=== PATIENT | female | born 1935 | race Caucasian/White ===

== ENCOUNTER 2018-09-12 07:30 | Inpatient (IN) ==
[~2018-09-12 07:30] MED LIST: Clindamycin 900mg (Premix) 900 MG/50 ML BAG IV ONE; LIDOCAINE W/ SODIUM BICARB 0.5 ML SYR SUBD PRN; Nasal Sanitizer POPSWAB ampule 3 AMP (Nozin) PREOP DOSE ENOS SCH
[2018-09-12] MEDS ORDERED: Clindamycin 900mg (Premix) 900 MG/50 ML BAG IV ONE (07:35)
[2018-09-12] MEDS ORDERED: LIDOCAINE W/ SODIUM BICARB 0.5 ML SYR ONE ×2 (07:35→11:46)
[2018-09-12] MEDS ORDERED: Lactated Ringers 1,000 ML PRIMARY IV ONE ×2 (07:35→16:26)
[2018-09-12] MEDS ORDERED: Ketorolac Inj 30 MG, Morphine Inj (Ortho Cocktail) 5 MG, BUPivacaine Inj 0.25% PF 150 MG SPLASH ONE ×3 (08:19)
[2018-09-12] MEDS ORDERED: fentaNYL Inj 250 MCG/5 ML VIAL ONE (09:21)
[2018-09-12] MEDS ORDERED: MIDAZOLAM 5 MG/1 ML ONE (09:21)
[2018-09-12] MEDS ORDERED: BUPIVACAINE 0.5% W/ EPI - 10 ML VIAL ONE (09:22)
[2018-09-12] MEDS ORDERED: PROPOFOL 10 MG/1 ML (200 MG/20 ML) VIAL IV ONE (09:22)
[2018-09-12] MEDS ORDERED: LIDOCAINE MPF 2% - 5 ML (20 MG/1 ML) ONE (09:22)
[2018-09-12] MEDS ORDERED: ROCURONIUM 10 MG/1 ML - 5 ML VIAL IVP ONE (09:28)
[2018-09-12] MEDS ORDERED: FAMOTIDINE 20 MG/2 ML VIAL IVP ONE (09:28)
[2018-09-12] MEDS ORDERED: KETAMINE HCL 100 MG/2 ML SYRINGE IV ONE (09:28)
[2018-09-12 09:42] LABS: BILIRUBIN,URINE NEGATIVE (NEG); CLARITY,URINE Slightly Cloudy (CLEAR); COLOR,URINE YELLOW (Y); GLUCOSE, URINE (UA) NEGATIVE (NEG); OCCULT BLOOD,URINE NEGATIVE (NEG); PH,URINE 5.5 (5.0-8.5); PROTEIN,URINE TRACE mg/dl (NEG); UROBILINOGEN,URINE 0.2 EU/dL (0.2)
[2018-09-12 09:43] LABS: URINE SAMPLE TYPE CLEAN CATCH URINE
[2018-09-12] MEDS: Lactated Ringers 1,000 ML PRIMARY IV SCH ×3 (10:10→19:31)
[2018-09-12] MEDS ORDERED: LIDOCAINE 2%/ EPI 1:200,000 - 20 ML VIAL ONE (12:17)
[2018-09-12] MEDS ORDERED: Sodium Chloride 0.9% vial 50 ML ONE (12:30)
[2018-09-12] MEDS ORDERED: BACITRACIN 50,000 UNIT VIAL IRRIG ONE (12:30)
[2018-09-12] MEDS ORDERED: BUPivacaine Liposome/PF (Exparel) Inj 20ml vial INFIL ONE (12:31)
[2018-09-12] MEDS ORDERED: Acetaminophen 1000mg Inj 1,000 MG/100 ML VIAL IV ONE (12:53)
--- NOTE | 2018-09-12 17:06 | ORTHO.OP ---
Surgery Date: 09/12/18 Preoperative Diagnosis: left knee OA Postoperative Diagnosis: same Procedure: left TKA Surgeon: Lui Nelson MD [employer] Referee: Mile Langford PA-C Anesthesia Provider: Michelle Ferguson CRNA Anesthesia Type: General, Regional (adductor) Estimated Blood Loss (mL): 250 Fluids: 2200 mL LR Pathology: none Findings: See Operative Note Indications: See Operative Note Complications: None
--- NOTE | 2018-09-12 17:31 | DI ---
LEFT KNEE, 09/12/2018 4:55 PM: Clinical History: Status post total knee replacement. Osteoarthritis. Previous Exam: None at this facility. Views: AP and lateral. Patient is status post total left knee replacement. Prosthetic joint articulates normally. Extensive vascular calcifications are noted in the popliteal artery and the anterior tibial artery. Reading: Status post total left knee replacement. The prosthetic joint articulates normally.
[2018-09-12 17:38] LABS: Hematocrit [HCT] 37.2 % (37.0-47.0); Hemoglobin [HGB] 11.9 g/dL (12.0-16.0)
[2018-09-12] MEDS ORDERED: ONDANSETRON 4 MG/2 ML VIAL IVP PRN (17:45)
[2018-09-12] MEDS ORDERED: LIDOCAINE HCL 2 % 10 ML JELLY URO-JECT TOPICAL PRN (17:45)
[2018-09-12] MEDS: Clindamycin 900mg (Premix) 900 MG/50 ML BAG IV SCH (19:20)
[2018-09-12] MEDS ORDERED: ePHEDrine Inj 50 MG/ML AMP ONE (19:51)
[2018-09-12] MEDS ORDERED: Lactated Ringers 0 ML PRIMARY IV ONE (19:51)
[2018-09-12] MEDS: DOCUSATE 100 MG CAPSULE PO SCH (22:05)
--- NOTE | 2018-09-12 23:19 | CRNA.PROCE ---
Nerve Block Documentation - - Safety Measures: Time Out Taken, Site Verified - - Type of Nerve Block Used: Left Adductor Canal Nerve Block Position for Nerve Block: Supine Moniters Used During Block: EKG, SPO2, NIBP Oxygen Supplemented: Yes Sedation Used - Enter Amount in Comment Field [ANES.SEDAT]: Midazolam (mg): Yes (1.5), Fentanyl (mcg): Yes (50) Skin Prep Used: ChloroPrep Draped: No Technique: Ultrasound Nerve Block Needle Used: 100 mm ProBlk II Local Anesthetic - Enter Amt in Comment Field [ANES.LOCNB]: 0.5 % Bupivicaine with Epinephrine 1:200,000 (mL): Yes (10cc), 2 % Xylocaine with Epinephrine 1:200,000 (mL): Yes (10cc) - - PreOp Block : Time In: 12:15 PreOp Block : Time Out: 12:43 Anesthesia Time - Other Weight: 102.965 kg Height: 5 ft 5 in Body Mass Index (BMI): 37.8
--- NOTE | 2018-09-12 23:21 | CRNA.PROGR ---
Anesthesia Time - Procedure/Recovery Time Start Date: 09/12/18 Anesthesia : Time In: 13:03 Anesthesia : Time Out: 17:05 - Block Time PreOp Block : Time In: 12:15 PreOp Block : Time Out: 12:43 - Other Weight: 102.965 kg Height: 5 ft 5 in Body Mass Index (BMI): 37.8 Physical Status: P3 Anesthesia Type: General Anesthesia : LMA
[2018-09-12] MEDS: HYDROcodone-APAP 7.5 MG-325 MG TABLET PO PRN (23:54)
[2018-09-13] MEDS: Clindamycin 900mg (Premix) 900 MG/50 ML BAG IV SCH ×2 (00:47→06:53)
[2018-09-13] MEDS: HYDROcodone-APAP 7.5 MG-325 MG TABLET PO PRN ×2 (03:56→09:31)
[2018-09-13 05:17] LABS: Hematocrit [HCT] 30.8 % (37.0-47.0); MEAN CORPUSCULAR HEMOGLOBIN 29.2 PG (27-31); MEAN CORPUSCULAR HGB CONC 32.5 g/dL (33-37); MEAN CORPUSCULAR VOLUME 90.1 FL (81-99); MEAN PLATELET VOLUME 11.8 FL (7.4-12.2); RED BLOOD COUNT 3.42 10^6/uL (4.20-5.40)
[2018-09-13 05:32] LABS: BLOOD UREA NITROGEN 26 mg/dL (7-22)
--- NOTE | 2018-09-13 06:57 | CONSULT ---
Consult Note - Consult Reason for Consult: PostOp Consulation : Ortho Requesting Physician: Dr. Nelson Primary Care Provider: THUY PANTOJA HPI - History of Present Illness History of Present Illness: This very nice 83-year-old female consulted by Dr. Nelson for postop medical management patient is here for elective left TKA patient has no complaints doing well no chest pain nausea or vomiting Past Medical History Medical History: Uses cyclosporine eyedrops Tobacco Use: Never Smoker In the Past 12 Months, Have Used or Abuse Any of the Following Substance: None Medication / Allergies Home Medications: Home Medications Medication Instructions Recorded Confirmed Type Aspirin Chewable Tab 81 mg PO DAILY 07/10/18 09/12/18 History Beta-Carotene(A)-Vits C,E/Mins 2 mg PO DAILY 07/10/18 09/12/18 History [Ocutabs Tablet] Cyanocobalamin (Vitamin B-12) 1,000 mcg PO DAILY 07/10/18 09/12/18 History [Vitamin B-12] Cyclosporine [Restasis] 1 ea OP BID 07/10/18 09/12/18 History Diclofenac Sodium [Diclo Gel] 1 patch TRANSDERM PRN PRN 07/10/18 09/12/18 History Flaxseed Oil [Flax Seed Oil] 1,000 mg PO DAILY 07/10/18 09/12/18 History Furosemide 40 mg PO DAILY 07/10/18 09/12/18 History Insulin Glargine,Hum.rec.anlog 30 unit SUBCUT DAILY 07/10/18 09/12/18 History [Lantus] Levothyroxine Sodium [Levothroid] 100 mcg PO DAILY 07/10/18 09/12/18 History Metoprolol Succinate [Toprol Xl] 100 mg PO DAILY 07/10/18 09/12/18 History Potassium Chloride 10 meq PO DAILY 07/10/18 09/12/18 History Rosuvastatin Calcium 10 mg PO DAILY 07/10/18 09/12/18 History metFORMIN Tab [Glucophage Tab] 2,000 mg PO DAILY 07/10/18 09/12/18 History Hydrocodone/Acetaminophen 1 - 2 ea PO Q4-6H PRN #70 tab 09/12/18 Rx [Hydrocodon-Acetaminoph 7.5-325] Allergies/Adverse Reactions: Allergies Allergy/AdvReac Type Severity Reaction Status Date / Time Penicillins Allergy HIVES Verified 09/13/18 06:36 Sulfa (Sulfonamide Allergy HIVES Verified 09/13/18 06:36 Antibiotics) Tetracyclines Allergy HIVES Verified 09/13/18 06:36 Contrast Dye Allergy Severe NOT Uncoded 09/12/18 09:57 APPLICABLE Exam - Vitals Vital Signs: Vital Signs Temperature 98.7 F Temperature Source Oral Pulse Rate [Pulse Oximeter] 72 Pulse Rate 69 Respiratory Rate 20 Blood Pressure [Left Arm] 133/40 Blood Pressure 180/62 Pulse Ox 92 Oxygen Flow Rate 1 Oxygen Delivery Method Nasal Cannula Height 5 ft 5 in Weight 227 lb - General General Appearance: No Acute Distress, Cooperative - Respiratory Respiratory Exam: POSITIVE: Clear to Auscultation - Bilaterally, Breathing Non Labored, Normal To Percussion, Normal to Percussion and Palpation - Cardiovascular Cardiovascular Exam: POSITIVE: RRR, No Murmur, No Clicks, No Gallops, No Rubs, PMI Non-Displaced - GI/Abdominal GI/Abdominal Exam: POSITIVE: Normal Bowel Sounds, Non Tender, Non Distended, Soft, No Masses, No Hepatomegaly, No Splenomegaly, No Organomegaly - Extremities Extremities Exam: POSITIVE: No Clubbing Present, No Edema Present, No Cyanosis Present Results - Labs CBC and BMP: 09/13/18 04:09 09/13/18 04:09 Assessment and Plan - Patient Problems (1) Total knee replacement status Current Visit: Yes Status: Acute Comment: Left TKA defer to orthopedic team for PT OT orders anticoagulation Code(s): Z96.659 - Presence of unspecified artificial knee joint - Assessment / Plan Additional Assessment/Plan Details: #1 medical management -a good urine output, vital signs are stable patient is on Lovenox for anticoagulation and is receiving clindamycin IV as per orthopedic team will address postop risk stratification is needed thank you for the consult labs reviewed anemia but hemodynamically stable
[2018-09-13] MEDS: Potassium Chloride 20mEq Packet PO SCH (09:09)
[2018-09-13] MEDS: ENOXAPARIN SODIUM 30 MG/0.3 ML SYRINGE SUBCUT SCH ×2 (09:09→21:32)
[2018-09-13] MEDS: ASPIRIN 81 MG (BABY) CHEWABLE TABLET PO SCH (09:10)
[2018-09-13] MEDS: Beta Carot W/Vit E,C,Min Tab 1 TAB TAB PO SCH (09:10)
[2018-09-13] MEDS: DOCUSATE 100 MG CAPSULE PO SCH ×2 (09:11→21:30)
[2018-09-13] MEDS: METOPROLOL SUCCINATE 50 MG SR 24H TABLET PO SCH (09:11)
[2018-09-13] MEDS: LEVOTHYROXINE 100 MCG TABLET PO SCH (09:11)
[2018-09-13] MEDS: CYANOCOBALAMIN (VITAMIN B-12) 1,000 MCG TABLET.ER PO SCH (09:11)
[2018-09-13] MEDS: FUROSEMIDE 40 MG TABLET PO SCH (09:11)
--- NOTE | 2018-09-13 11:12 | CRNA.PROGR ---
Anesthesia Note - Progress Notes Anesthesia Progress Note: First PO day, pt up in chair with family present. Had a good night, VS WNL, having some discomfort recently, had PO analgesia. I put a flat ice pack behind her knee and obtained info regarding the CPM for her. GABBY Landeros
--- NOTE | 2018-09-13 11:37 | OPS CRUTCH ---
Diagnosis : Left Total Knee Arthroplasty Referral Reason: Knee Cryo Cuff/Walker O: The patient was issued a knee Cryo-Cuff and a walker and instructed in their proper use and care. P: No further therapy is indicated at this time. MTDD
[2018-09-13] MEDS: Lactated Ringers 1,000 ML PRIMARY IV SCH ×2 (11:46→21:33)
[2018-09-13] MEDS: metFORMIN ER 500 MG TABLET PO SCH ×2 (12:16→21:30)
[2018-09-13] MEDS: oxyCODONE/APAP 7.5/325 Tab 1 TAB TAB PO PRN ×2 (13:12→21:29)
--- NOTE | 2018-09-13 15:24 | PTI REPORT ---
Thank you for the referral of Audrey Blandon. She was seen on 09/13/18 for an inpatient evaluation status post left total knee arthroplasty. SUBJECTIVE: The patient is an 83-year-old female. The patient reports that she lives in [place]. She was independent previously and she lived at [facility], which is an assisted living facility; however, it doesn't sound like she got much assistance. The patient rates her pain level as a 4/10 on the verbal analog scale (0=no pain, 10=worst pain). The patient is not on oxygen at home. The patient does have a walker at home that her daughter is going to bring. PAST MEDICAL HISTORY: Past medical history can be found in the patient's medical record. OBJECTIVE FINDINGS: General observations: Nursing okayed treatment prior to PT. The patient's CPM machine was adjusted to fit and the patient was issued CPM pads. The patient's walker was adjusted and was made into a standard walker instead of a front wheeled walker. The patient is on 0.5 liters of oxygen and has a catheter in place. Bed mobility: The patient required min assist x1 for supine to sit transfer to edge of bed for left lower extremity assistance. Transfers: The patient required contact guard assist x2 for sit to stand transfer with standard walker from edge of bed. The patient transferred from stand to sit with contact guard assist x2 for safety and mod cues for technique with standard walker. Ambulation: The patient was able to ambulate approximately 10 feet to her chair with contact guard assist x2 and standard walker. Edema: The patient demonstrated Grade III+ edema in left lower extremity. Sensation: The patient's dermatomes are normal and intact in bilateral lower extremities. Strength: Manual muscle testing was not formally assessed at this time due to recent procedure. ASSESSMENT: The patient is an 83-year-old female who is status post total knee arthroplasty. The patient would benefit from skilled therapy in order to return to prior level of function. The patient's prognosis for therapy is fair. Problem List: Decreased functional mobility Decreased strength Decreased endurance Short-Term Goals: To be met by discharge from inpatient: Patient will be independent with all transfers with least restrictive assistive device. Patient will be able to ambulate 150 feet with walker independently. Patient will be able to tolerate 15 minutes of activity in order to improve functional mobility. Long-Term Goals: To be met following discharge from inpatient: Patient will benefit from outpatient physical therapy. TREATMENT PLAN: Patient will be seen B.I.D during the week and one time per day over the weekend as an inpatient for therapeutic exercises, neuromuscular reeducation, gait training, modalities as needed, and functional activity. INITIAL TREATMENT: Treatment today consisted of the initial evaluation followed by the patient transferring to the chair. We then returned the patient from the chair to her bed with contact guard assist x2. Oxygen was removed per nursing staff. The patient's CPM machine was adjusted to fit the patient as the patient complained of the CPM not fitting correctly. Therapy staff spent a lot of time trying to adjust the CPM machine to fit her needs. The patient was left in bed with bed alarm activated and call light within reach. [facility] [place]
--- NOTE | 2018-09-13 17:05 | PT.PROG ---
Progress Note Progress Note: S. patient stated that she is not feeling right this afternoon, she states that she does not want to do much therapy. O. Patient stood at the edge of the bed 2x3 minutes Patient was left in bed with alarm and call light. A. Patient is very nervous about exercise and ambulation, she was unwilling to try to ambulate further. Patient would continue to benefit from skilled therapy. P. Continue POC.
[2018-09-13] MEDS ORDERED: Insulin Glargine SoloStar Inj 100 UNIT/ML INSULN.PEN SUBCUT SCH ×2 (21:00→21:15)
[2018-09-13] MEDS ORDERED: Insulin Sliding Scale Protocol SUBCUT PRN (21:17)
[2018-09-13] MEDS ORDERED: DEXTROSE 50%-WATER SYRINGE 50 ML SYRINGE IVP PRN (21:17)
[2018-09-13] MEDS ORDERED: Glucagon Inj Vial 1 MG/ML VIAL IM PRN (21:17)
[2018-09-13] MEDS ORDERED: DEXTROSE 31 GM GEL PO PRN (21:17)
[2018-09-13] MEDS: Rosuvastatin Tab 20 MG TAB PO SCH (21:30)
[2018-09-13] MEDS: Insulin Lispro Flexpen 300 UNIT/3 ML INSULN.PEN SUBCUT SCH (22:58)
[2018-09-14] MEDS: oxyCODONE/APAP 7.5/325 Tab 1 TAB TAB PO PRN ×4 (03:43→20:51)
[2018-09-14] MEDS: LEVOTHYROXINE 100 MCG TABLET PO SCH (04:30)
[2018-09-14 05:13] LABS: Hematocrit [HCT] 30.8 % (37.0-47.0); Hemoglobin [HGB] 10.2 g/dL (12.0-16.0); MEAN CORPUSCULAR HEMOGLOBIN 29.1 PG (27-31); MEAN CORPUSCULAR HGB CONC 33.1 g/dL (33-37); MEAN PLATELET VOLUME 12.2 FL (7.4-12.2); RED BLOOD COUNT 3.5 10^6/uL (4.20-5.40)
[2018-09-14 05:30] LABS: BLOOD UREA NITROGEN 21 mg/dL (7-22)
[2018-09-14] MEDS: Potassium Chloride 20mEq Packet PO SCH ×2 (07:10→08:40)
[2018-09-14] MEDS: FUROSEMIDE 40 MG TABLET PO SCH (07:10)
[2018-09-14] MEDS: Insulin Lispro Flexpen 300 UNIT/3 ML INSULN.PEN SUBCUT SCH ×4 (07:29→20:52)
[2018-09-14] MEDS: metFORMIN ER 500 MG TABLET PO SCH ×2 (08:38→20:50)
[2018-09-14] MEDS: ENOXAPARIN SODIUM 30 MG/0.3 ML SYRINGE SUBCUT SCH ×4 (08:38→20:50)
[2018-09-14] MEDS: METOPROLOL SUCCINATE 50 MG SR 24H TABLET PO SCH (08:38)
[2018-09-14] MEDS: DOCUSATE 100 MG CAPSULE PO SCH ×2 (08:39→20:50)
[2018-09-14] MEDS: ASPIRIN 81 MG (BABY) CHEWABLE TABLET PO SCH (08:39)
[2018-09-14] MEDS: Beta Carot W/Vit E,C,Min Tab 1 TAB TAB PO SCH (08:39)
[2018-09-14] MEDS: CYANOCOBALAMIN (VITAMIN B-12) 1,000 MCG TABLET.ER PO SCH (08:40)
[2018-09-14] MEDS: Lactated Ringers 1,000 ML PRIMARY IV SCH ×2 (09:11→16:24)
[2018-09-14] MEDS ORDERED: Insulin Glargine SoloStar Inj 100 UNIT/ML INSULN.PEN SUBCUT SCH (09:14)
--- NOTE | 2018-09-14 09:18 | PDOC(PROG) ---
Date of Service: 09/14/18 Time of Service: 09:20 Interval History: Subjective Patient said she feels lousy, she attributed that to having high blood sugar her blood sugar was high last night. She is normally on Lantus 40 units in the morning. She did not take Lantus on the day of the surgery. She is also on metformin 500 twice a day. She Is on metoprolol for blood pressure. She is somewhat upset because her blood sugar was high. She refuses to take the short acting insulin because one time in the past last year her blood sugar was high as a result of steroid injection she received short acting and her blood sugar went really low. Objective : Data - Labs CBC and BMP: 09/14/18 03:43 09/14/18 12:14 Objective : Exam - General General Appearance: Cooperative, Morbidly Obese - Head Head Exam: Normal Inspection - Eye Eye Exam: Normal Appearance - ENT ENT Exam: Normal Exam - Neck Neck Exam: Normal Inspection - Respiratory Respiratory Exam: Clear to Auscultation - Bilaterally - Cardiovascular Cardiovascular Exam: RRR - GI/Abdominal GI/Abdominal Exam: Normal Bowel Sounds, Non Tender, Non Distended, Soft, No Organomegaly - Rectal Rectal Exam: Deferred - External Exam: Deferred - Extremities Additional Extremities Exam Details: Dressing applied to the left knee. - Back Back Exam: Normal Inspection - Neurological Neurological Exam: Alert, Oriented x 3, CN II-XII Intact - Psychiatric Psychiatric Exam: Normal Affect - Integumentary Integumentary Exam: Normal Color Assessment and Plan - Patient Problems (1) Total knee replacement status Current Visit: Yes Status: Acute Comment: She status post knee replacement continue PT and OT. The plan for her to go to [facility] to continue physical therapy. For DVT prophylaxis she is on Lovenox. She accepted take it today. Code(s): Z96.659 - Presence of unspecified artificial knee joint (2) Diabetes Current Visit: Yes Status: Acute Comment: We negotiated starting Lantus now at 30 units because she received 20 last night. I said we'll recheck her blood sugar in few hours if her blood sugar still high we may have to give her extra dosage of short acting insulin she agreed. She did receive her metformin 1000 mg today. Normally she said she is on 500 twice a day. We'll continue with the fluid for a few hours more and see what's her blood sugar later on and decide about continuing it or stop ping it. Code(s): E11.9 - Type 2 diabetes mellitus without complications (3) Hypothyroidism Current Visit: Yes Status: Acute Comment: Same meds Code(s): E03.9 - Hypothyroidism, unspecified
--- NOTE | 2018-09-14 09:53 | ORTHO.PROG ---
Last Taken Vital Signs: Vital Signs - Last Taken Temperature 98.4 F 09/14/18 07:31 Pulse Rate 86 09/14/18 07:31 Respiratory Rate 24 09/14/18 07:31 Blood Pressure 172/61 09/14/18 07:31 Pulse Ox 89 09/14/18 07:31 Subjective: Patient is POD 2 from Left TKA. She is reportedly doing well and would like to be discharged to a rehab facility. Objective: Laboratory Results 09/14/18 09/14/18 03:43 03:43 WBC 7.94 RBC 3.50 L Hgb 10.2 L Hct 30.8 L MCV 88.0 MCH 29.1 MCHC 33.1 RDW Std Deviation 39.0 RDW Coeff of [place] 12.5 Plt Count 171 MPV 12.2 Sodium 128 L Potassium 4.5 Chloride 95 L Carbon Dioxide 26 Anion Gap 7 BUN 21 Creatinine 0.7 BUN/Creatinine Ratio 30.00 H Glucose 327 H Calculated Osmolality 281.0 Calcium 8.7 On exam, the dressing is clean/dry/intact. NV intact. Negative calf tenderness. Assessment: POD 2 from Left TKA stable and doing well. Plan: * DVT ppx: ASA 81mg 1 tablet daily x 6 weeks * Dressing to be removed on POD 3, then may leave uncovered and shower as normal, no soaking of the incision x 4 weeks * Pain meds: discharge with Hydrocodone 7.5/325mg 1-2 tablets every 4-6 hours prn pain * WBAT with walker * discharge to [facility] * continue outpatient PT once discharged home from rehab * Follow-up with orthopedics in 2 weeks as scheduled
--- NOTE | 2018-09-14 10:24 | OT.PROG ---
Progress Note Progress Note: S: pt was much more alert today, did report some nausea and feeling light headed. O: pt was seen alternative dispute resolution mediator and was assisted with bed mobility min A. She then stood and only stepped to L and R before needing to sit. She returned to her supine position in bed to return later. She completed bed mobility once again with min A to EOB. Her catheter was dumped and she donned UE garments with MoD Ind as it took her longer to complete. She then completed dressing of LE's with use of A.E. and min A. PT took over treatment and cryocuff was placed on knee. A: pt was educated on importance of keep knee in ext while lying down. She did participate much better today, but she is still apprehensive about Wb'ing on af fected knee. P: continue per POC.
--- NOTE | 2018-09-14 11:50 | OTI REPORT ---
Thank you for the referral of Audrey Blandon. She was seen on 09/13/18 for an occupational therapy inpatient evaluation status post left total knee arthroplasty. SUBJECTIVE: The patient is an 83-year-old female. The patient reports she is feeling okay. She does report pain this afternoon; she reports that today has been worse than yesterday and she is very anxious. The patient indicated that she has had a very difficult year. Her approximately four years ago and she moved to [place] and had to move a couple of different times. She is currently living in [place] at [facility]; however, she is on the independent side. At prior level of function the patient ambulated with the use of a four wheeled walker; however, within the last couple of months she has mainly been scooting while seated on her four wheeled walker due to pain in her lower extremities. The patient does receive one meal a day from the facility where she lives and she performs slight meal preparation tasks in her room for her other meals. There are no steps to the entrance of her home. At prior level of function the patient demonstrated the ability to complete independent dressing tasks and independent showering tasks; she did not receive assistance at all from her facility for any ADL or iADL tasks. The patient does receive assistance from her daughter for cleaning tasks. Bathroom set up includes a tub/shower combo with grab bars. She does not have a toilet riser and may be interested in one at this time. The patient was not driving at prior level of function due to vision differences. She reports that she did have some therapy prior to surgery as she was trying to decrease pain. The patient does have Diabetes. The patient reports that she is hoping to go to [facility] in [place] for her rehab stay and is hoping to go tomorrow morning potentially. PAST MEDICAL HISTORY: Past medical history can be found in the patient's medical record. OBJECTIVE FINDINGS: Bed mobility: The patient demonstrated the ability to complete bed mobility tasks with mod assist. Activities of daily living: The patient completed lower extremity dressing tasks with a sock aide with mod assistance and was instructed in the use of the welfare specialist and sock aide. The patient did not perform upper extremity dressing tasks at this time. Transfers: The patient demonstrated the ability to complete a sit to stand transfer from recliner chair with contact guard assist; however, her anxiety level did increase upon standing and she was unable to walk for any substantial distance. Range of motion: The patient's upper extremity range of motion is within functional limits for the shoulder, elbow, hand, and wrist. Strength: Upper extremity strength is fair at this time. ASSESSMENT: Rehab potential is fair to good. Problem List: Decreased ability to complete lower extremity dressing Decreased ability to complete upper extremity dressing Decreased ability to complete bed mobility Decreased activity tolerance Decreased ability to complete functional transfers Decreased ability to complete toileting/showering Decreased upper extremity strength Short-Term Goals: To be met by discharge from inpatient: Patient will demonstrate an increase in upper extremity strength to 4/5 bilaterally to assist with functional mobility tasks. Patient will increase activity tolerance and standing balance to stand x8-10 minutes at the sink with use of walker if needed to complete standing grooming tasks with no losses of balance. Patient will complete a toileting task to include transfer, pants management, and toilet hygiene with contact guard assist only for safety. Patient will demonstrate the ability to complete lower extremity dressing tasks with modified independence with use of adaptive equipment. Patient will demonstrate the ability to complete upper extremity dressing tasks with set up assistance. Patient will demonstrate the ability to complete bed mobility tasks with contact guard assist only for safety. Patient will demonstrate the ability to complete all functional transfers with contact guard assist only for safety with the use of a walker as needed. Long-Term Goals: To be met following discharge from inpatient: Patient's goal is to be transferred to [facility]. Patient will return home to prior level of function and be independent with ADLs. TREATMENT PLAN: Patient will be seen B.I.D during the week and one time per day over the weekend as an inpatient to address the above goals and objectives. INITIAL TREATMENT: Treatment today consisted of the initial evaluation only. Following session the patient was left in bed with alarms in place, bedside table, and call light within reach. The patient was issued a sock aide and a welfare specialist. We will look at potentially getting the patient a toilet riser or toilet handles. KAYLEY
[2018-09-14] MEDS: POLYETHYLENE GLYCOL 3350 17 GM POWDER PO SCH (16:23)
--- NOTE | 2018-09-14 16:35 | OT.PROG ---
Progress Note Progress Note: S: pt was alert this afternoon. She was willing to go to therapy after she received her pain meds. O: pt was seen in her room and after completing bedside commode transfer she was transferred downstairs. Once she arrived in therapy she completed x1 sit to stand with min A as she was at a lower elevated position. She completed transfer apprx 8 ft with CGA before sitting on EOB. She needed moD A with bed mobility for comfort. She received heat to LE to elongate muscle fibers. A: pt tolerated therapy much better and must continue to leave knee in ext while not in CPM. Continue to progress with her ambulation P: continue per POC.
--- NOTE | 2018-09-14 16:41 | PT.PROG ---
Progress Note Progress Note: S. Patient stated that she is still hurting and doesn't want to do much. O. Patient ambulated 15 feet around her room then was left in her chair with alarm and call light. A. Patient tolerated ambulation fair, she continues to require frequent cues for motivation and would continue to benefit from skilled therapy to increase strength and mobility. P. Continue POC.
[2018-09-14] MEDS: Rosuvastatin Tab 20 MG TAB PO SCH (20:51)
[2018-09-15 04:25] LABS: Hematocrit [HCT] 28.3 % (37.0-47.0); Hemoglobin [HGB] 9.4 g/dL (12.0-16.0); MEAN CORPUSCULAR HEMOGLOBIN 29.2 PG (27-31); MEAN CORPUSCULAR HGB CONC 33.2 g/dL (33-37); MEAN CORPUSCULAR VOLUME 87.9 FL (81-99); MEAN PLATELET VOLUME 11.3 FL (7.4-12.2); RED BLOOD COUNT 3.22 10^6/uL (4.20-5.40)
[2018-09-15] MEDS: LEVOTHYROXINE 100 MCG TABLET PO SCH (04:31)
[2018-09-15 04:44] LABS: BLOOD UREA NITROGEN 22 mg/dL (7-22)
[2018-09-15] MEDS ORDERED: ACETAMINOPHEN 325 MG TABLET PO PRN (05:47)
[2018-09-15] MEDS: Insulin Lispro Flexpen 300 UNIT/3 ML INSULN.PEN SUBCUT SCH ×2 (07:40→12:19)
[2018-09-15] MEDS: FUROSEMIDE 40 MG TABLET PO SCH (08:39)
[2018-09-15] MEDS: ASPIRIN 81 MG (BABY) CHEWABLE TABLET PO SCH (08:39)
[2018-09-15] MEDS: CYANOCOBALAMIN (VITAMIN B-12) 1,000 MCG TABLET.ER PO SCH (08:39)
[2018-09-15] MEDS: ENOXAPARIN SODIUM 30 MG/0.3 ML SYRINGE SUBCUT SCH (08:39)
[2018-09-15] MEDS: Potassium Chloride 20mEq Packet PO SCH (08:40)
[2018-09-15] MEDS: METOPROLOL SUCCINATE 50 MG SR 24H TABLET PO SCH (08:40)
[2018-09-15] MEDS: Beta Carot W/Vit E,C,Min Tab 1 TAB TAB PO SCH (08:40)
[2018-09-15] MEDS: DOCUSATE 100 MG CAPSULE PO SCH (08:40)
[2018-09-15] MEDS: POLYETHYLENE GLYCOL 3350 17 GM POWDER PO SCH (08:41)
[2018-09-15] MEDS ORDERED: metFORMIN ER 500 MG TABLET PO SCH (09:00)
[2018-09-15] MEDS ORDERED: Insulin Glargine SoloStar Inj 100 UNIT/ML INSULN.PEN SUBCUT SCH (09:00)
--- NOTE | 2018-09-15 09:00 | ORTHO.PROG ---
Progress Note -: Vital Signs - Last Taken Temperature 98.4 F 09/14/18 07:31 Pulse Rate 86 09/14/18 07:31 Respiratory Rate 24 09/14/18 07:31 Blood Pressure 172/61 09/14/18 07:31 Pulse Ox 89 09/14/18 07:31 Laboratory Results 09/14/18 09/14/18 03:43 03:43 WBC 7.94 RBC 3.50 L Hgb 10.2 L Hct 30.8 L MCV 88.0 MCH 29.1 MCHC 33.1 RDW Std Deviation 39.0 RDW Coeff of [place] 12.5 Plt Count 171 MPV 12.2 Sodium 128 L Potassium 4.5 Chloride 95 L Carbon Dioxide 26 Anion Gap 7 BUN 21 Creatinine 0.7 BUN/Creatinine Ratio 30.00 H Glucose 327 H Calculated Osmolality 281.0 Calcium 8.7 Subjective: - Postop Day [1] Objective: - Taking PO pain medication - Tolerating regular diet - No Lea - voiding without difficulty - Ambulating in room - Labs and Vital Signs reviewed Assessment: - CMS intact - Prevena dressing intact Plan: - Discharge home once cleared by Physical Therapy - Nursing to provide and educated patient on changing dressing to a Silverlon dressing on postop day 7 or if Pervena losses suction before postop day 7
--- NOTE | 2018-09-15 09:02 | ORTHO.PROG ---
Progress Note -: Vital Signs - Last Taken Temperature 98.4 F 09/15/18 07:13 Pulse Rate 80 09/15/18 07:13 Respiratory Rate 16 09/15/18 07:13 Blood Pressure 141/46 09/15/18 07:13 Pulse Ox 90 09/15/18 07:13 Laboratory Results 09/14/18 09/15/18 09/15/18 12:14 04:10 04:10 WBC 8.00 RBC 3.22 L Hgb 9.4 L Hct 28.3 L MCV 87.9 MCH 29.2 MCHC 33.2 RDW Std Deviation 38.7 L RDW Coeff of [place] 12.4 Plt Count 172 MPV 11.3 Sodium 128 L Potassium 4.3 Chloride 95 L Carbon Dioxide 28 Anion Gap 5 BUN 22 Creatinine 0.8 BUN/Creatinine Ratio 27.50 H Glucose 440 H* 108 Calculated Osmolality 269.0 Calcium 8.5 L Subjective: - Postop Day [3] Objective: - Taking PO pain medication - Tolerating regular diet - - Ambulating - Labs and Vital Signs reviewed high glucose noted, hospitalist aware. Assessment: - CMS intact - Prevena dressing intact Plan: - Discharge home once cleared by Physical Therapy will be going to [place]. - Nursing to provide and educated patient on changing dressing to a Silverlon dressing on postop day 7 or if Pervena losses suction before postop day 7
--- NOTE | 2018-09-15 12:30 | DCSUMMARY ---
Hospitalization Summary Admit Date: 09/12/2018 Discharge Date: 09/15/18 Hospital Course: Discharge diagnoses 1. Status post left knee replacement 2. Diabetes 3. Hypertension 4. History of hypercholesterolemia 5. History of hypothyroidism 6. Anemia secondary to postoperative blood loss 7. Hyponatremia Hospital course This is an 83 years old female with medical history significant for history of hypertension, diabetes , hypothyroidism and osteoarthritis who came into the hospital to have left knee replacement and was done by Dr. Nelson. The hospitalist service were consulted for management of medical issues. She was seen by initially by Dr. Smith please see his note. I saw her on the the she was complaining from nausea and her blood sugar was elevated the night before. She received only half of her Lantus the night before. Usually she said she takes Lantus 40 units in the morning, she was hesitant initially to be on Humalog but after negotiating with her in addition to putting her on Lantus we put her also on Humalog her blood sugar gradually decreased. on The day of discharge a complaint was some constipation but the knee pain seemed to be control. Her blood sugar was better than the night before. We thought she could be discharged to go to acute rehabilitation at [facility] and she was accepted there. Discharge instruction Diet regular activity as tolerated Medications Active Medications Acetaminophen (Tylenol) 650 mg PO Q6H PRN PRN Reason: Pain Hydrocodone Bitart/Acetaminophen ([place] 7.5/325 Tab) 1 - 2 tab PO Q4H PRN PRN Reason: Pain Last Admin: 09/13/18 09:31 Dose: 2 tab Documented by: Aspirin (Aspirin Chewable Tab) 81 mg PO DAILY [facility] Last Admin: 09/15/18 08:39 Dose: 81 mg Documented by: Cyanocobalamin (Vitamin B-12) 1,000 mcg PO DAILY [facility] Last Admin: 09/15/18 08:39 Dose: 1,000 mcg Documented by: Dextrose (Dextrose 50% Inj) 30 - 40 ml IVP Q15M PRN PRN Reason: BG < 70 unable to take oral Docusate Sodium (Colace) 100 mg PO BID [facility] Last Admin: 09/15/18 08:40 Dose: 100 mg Documented by: Enoxaparin Sodium (Lovenox Inj) 30 mg SUBCUT BID [facility] Last Admin: 09/15/18 08:39 Dose: 30 mg Documented by: Furosemide (Lasix) 40 mg PO DAILY@0700 [facility] Last Admin: 09/15/18 08:39 Dose: 40 mg Documented by: Glucagon (Glucagen) 1 mg IM ONCE PRN PRN Reason: BG < 70 NPO & NO IV Glucose (Insta-Glucose Gel) 15 - 20 gm PO Q15M PRN PRN Reason: BG < 70 Sodium Chloride (Normal Saline 0.9%) 25 mls @ 200 mls/hr IV .Post Infusion PRN PRN Reason: No Primary IV for Flush ONLY Insulin Glargine (Lantus Solostar Inj) 40 unit SUBCUT DAILY [facility] Last Admin: 09/15/18 08:41 Dose: 40 unit Documented by: Insulin Human Lispro (Humalog Flexpen Inj) 4 - 14 unit SUBCUT AC [facility]; Protocol Last Admin: 09/15/18 12:19 Dose: Not Given Documented by: Levothyroxine Sodium (Synthroid) 100 mcg PO DAILY@0530 [facility] Last Admin: 09/15/18 04:31 Dose: 100 mcg Documented by: Lidocaine HCl (Xylocaine Uro-Ject 2%) 10 ml TOPICAL ONCE PRN PRN Reason: Discomfort catheter insertion Metformin HCl (Glucophage Xr Tab) 500 mg PO BID [facility] Last Admin: 09/15/18 08:39 Dose: 500 mg Documented by: Metoprolol Succinate (Toprol Xl) 100 mg PO DAILY [facility] Last Admin: 09/15/18 08:40 Dose: 100 mg Documented by: Multivitamins/Minerals (Ocuvite Tab) 1 tab PO DAILY [facility] Last Admin: 09/15/18 08:40 Dose: 1 tab Documented by: Ondansetron HCl (Zofran Inj) 4 mg IVP Q4H PRN PRN Reason: NAUSEA / VOMITING Oxycodone/Acetaminophen (Percocet 7.5/325 Tab) 1 - 2 tab PO Q4H PRN PRN Reason: Pain Last Admin: 09/14/18 20:51 Dose: 1 tab Documented by: Polyethylene Glycol (Miralax Packet) 17 gm PO DAILY [facility] Last Admin: 09/15/18 08:41 Dose: 17 gm Documented by: Potassium Chloride (K-[place] Packet) 10 meq PO DAILY [facility] Last Admin: 09/15/18 08:40 Dose: 10 meq Documented by: Rosuvastatin Calcium (Crestor) 10 mg PO BEDTIME [facility] Last Admin: 09/14/18 20:51 Dose: 10 mg Documented by: Follow-up with the Dr. Nelson as scheduled. Patient will be transferred to [facility] to continue physical therapy. Exam - Vitals Vital Signs: Vital Signs Temperature 98.4 F Temperature Source Temporal Artery Scan Pulse Rate [Pulse Oximeter] 80 Pulse Rate 69 Respiratory Rate 16 Blood Pressure [Right Arm] 141/46 Blood Pressure [Left Arm] 142/61 Blood Pressure 180/62 Pulse Ox 90 Oxygen Flow Rate 2 Oxygen Delivery Method Room Air Height 5 ft 5 in Weight 237 lb 3.2 oz - General General Appearance: No Acute Distress, Obese - Head Head Exam: Normal Inspection - Eye Eye Exam: POSITIVE: Normal Appearance - ENT ENT Exam: POSITIVE: Normal Exam - Neck Neck Exam: Normal Inspection - Respiratory Respiratory Exam: POSITIVE: Clear to Auscultation - Bilaterally - Cardiovascular Cardiovascular Exam: POSITIVE: RRR - GI/Abdominal GI/Abdominal Exam: POSITIVE: Normal Bowel Sounds, Non Tender, Non Distended, Soft, No Organomegaly - Rectal Rectal Exam: POSITIVE: Deferred - External Exam: POSITIVE: Deferred Exam: POSITIVE: Deferred - Extremities Extremities Exam: POSITIVE: No Edema Present - Back Back Exam: POSITIVE: Normal Inspection - Neurological Neurological Exam: POSITIVE: Alert, Reflexes Normal, CN II-XII Intact, No Facial Droop, Speech Intact / Clear, Moves All Extremities Equally - Psychiatric Psychiatric Exam: POSITIVE: Normal Affect Patient Problems - Patient Problem List (1) Total knee replacement status Status: Acute Code(s): Z96.659 - Presence of unspecified artificial knee joint Category: Surgical (2) Diabetes Status: Acute Code(s): E11.9 - Type 2 diabetes mellitus without complications Category: Medical (3) Hypothyroidism Status: Acute Code(s): E03.9 - Hypothyroidism, unspecified Category: Medical
[2018-09-15 12:54] VITALS: BP 136/43; RESP 18; TEMP 97.8; O2SAT 94
[2018-09-15] MEDS ORDERED: ALPRAZolam Tab 0.25 MG TABLET PO ONE (14:30)
[2018-09-15] MEDS: oxyCODONE/APAP 7.5/325 Tab 1 TAB TAB PO PRN (14:40)
--- NOTE | 2018-09-15 16:46 | OT.PROG ---
Progress Note Progress Note: S: pt stated that she was finished using the bathroom and was ready to get into her chair. O: tx consisted of ADL tasks of toilet hygiene where pt completed task independently with SBA. pt completed STS x1 and donned LE independently. pt then completed functional transfer bed side commode to recliner with standard walker and CGA for safety. A: pt is improving in self care skills and transfers. P: pt will be discharged to [facility] for further rehabilitation.
--- NOTE | 2018-09-16 09:50 | PT.PROG ---
Progress Note Progress Note: S: pt. states she is doing ok. States she will be going to [facility] in [place] for further strengthening, possibly tomorrow. O: Treatment consisted of moist heat to her knee followed by gentle massage. She then performed therapeutic exercises: 10x each: slr, hip abd/add, saq, bed mobility from supine to sit, sit to stands x 2 and walking with min assist x 2 x 10 feet. Pt. was then taken back to her room and placed in recliner with call button within reach. A: pt. peformed exercises with min assist. She is improving with ambulation as well as bed mobility. P: Continue per POC to increase strength and activity tolerance. Salina Duran, [employer]
--- NOTE | 2018-09-18 11:10 | OT AM DAY ---
Diagnosis : Left Total Knee Arthroplasty AM - Occupational Therapy S: The patient reports she will be going to [facility] some time this afternoon. O: Today the patient was able to come from supine to sit with max assist. While sitting edge of bed, the patient needed assistance to come from sit to stand and to raise the bed. It took her increased time to walk to the chair. The patient ate breakfast and the therapist did come back to work with her on commode transfer with mod assist. The patient required min assist for toilet hygiene and had difficulty standing to pull pants up to waist level. We then went to the chair to work on dressing tasks. The patient still requires mod to max assist for lower extremity dressing. The patient still requires mod to max assist for sit to stand transfers from a slightly lower surface. A: The patient still requires a lot of assistance. She would benefit from further rehab. She is probably going to be transferred to [facility] today. P: Continue seeing patient B[facility] during the week and one time per day over the weekend until discharge. KAYLEY
--- NOTE | 2018-09-18 11:29 | PT AM DAY ---
Diagnosis : Left Total Knee Arthroplasty AM - Physical Therapy S: The patient reports no new changes. O: The patient was brought to the department by occupational therapy. She received an application of moist heat pack x20 minutes including set up to the left knee. The patient performed open chain exercises, closed chain exercises, sit to stands, and boxes. The patient then ambulated to the stairs where she ascended and descended 7 stairs with stand by assist. A: The patient's goals with us have basically been met. We will see her if she is still here in the afternoon for similar treatment. P: Continue seeing patient BID during the week and one time per day over the weekend for transfers, ambulation, and range of motion/strengthening exercises. MTDD
== END 2018-09-15 15:41 | DRG 470 ==
LOC: OPS 09:08 → MED/SURG 17:47
PROVIDERS: ADMIT Orthopaedic Surgery; ATTEND Orthopaedic Surgery